=== PATIENT | female | born 1930 ===

== ENCOUNTER 2018-04-13 09:46 | Emergency (ER) | payer MEDICARE, OTHER ==
--- NOTE | 2018-04-13 10:01 | UC ---
Skin Complaint HPI - HPI Summary HPI Summary: 88 yo female presents with cat bite to right hand. She tells me that 2 days ago she was playing with her daughter's cat and the cat got spooked and bit pt on right hand. Cat is UTD on vaccinations. pt has a friend who is an [employer] and they called in augmentin - she took a dose last night and one this morning. Here today for evaluation. Pt and daughter also tell me that 4-5 days ago pt and her ate out at local restaurant - the next day had vomiting and diarrhea. Later that night pt seemed to be wheezing. Has been coughing a little since the vomiting episode. Denies fever, chills, SOB, chest pain, abdominal pain, n/v/d/c. - History of Current Complaint Time Seen by Provider: 04/13/18 10:01 Stated Complaint: CAT BITE Hx Obtained From: Patient, Family/Tobacco Sprayer Onset/Duration: Sudden Onset Onset Severity: Moderate Current Severity: Mild Pain Intensity: 3 Pain Scale Used: 0-10 Numeric - Allergy/Home Medications Allergies/Adverse Reactions: Allergies Allergy/AdvReac Type Severity Reaction Status Date / Time No Known Allergies Allergy Verified 05/30/14 10:12 Home Medications: Home Medications Amoxicillin/Clavulanate TAB* [Augmentin TAB 875*] 875 mg PO BID 04/13/18 [ History Confirmed 04/13/18] Aspirin 1 tab PO DAILY 04/13/18 [History Confirmed 04/13/18] Lisinopril TAB* [Prinivil TAB*] 10 mg PO DAILY 04/13/18 [History Confirmed 04/13] Losartan TAB* [Cozaar TAB*] 50 mg PO DAILY 04/13/18 [History Confirmed 04/13/18] Review of Systems Constitutional: Negative Skin: Other - Cat bite right hand Eyes: Negative ENT: Negative Respiratory: Cough Cardiovascular: Negative Gastrointestinal: Negative Neurovascular: Negative Neurological: Negative Psychological: Negative All Other Systems Reviewed And Are Negative: Yes PMH/Surg Hx/FS Hx/Imm Hx Previously Healthy: Yes Cardiovascular History: Hypertension - Surgical History Surgical History: Yes Surgery Procedure, Year, and Place: TUBAL LIGATION,LUMPECTOMY,LIPOMA REMOVED FROM LT SHOULDER, LEFT BREAST LUMPECTOMY FEBRUARY 2012, TONSILS - Social History Alcohol Use: Daily Alcohol Amount: wine/dinner Substance Use Type: None Smoking Status (MU): Never Smoked Tobacco Physical Exam - Summary Physical Exam Summary: GENERAL: NAD. WDWN. No pain distress. SKIN: Right dorsal hand: 2mm scab at area of cat bite. Mild edema about right hand. Mild TTP. No warmth, erythema, drainage, bleeding, or streaking HEENT: Head: AT/NC Eyes: EOM intact. Conjunctiva clear without inflammation or discharge. Ears: Hearing grossly normal. TMs intact, no bulging, erythema, or edema. Nose: Nasal mucosa pink and moist. NTTP maxillary and frontal sinus. Throat: Posterior oropharynx without exudates, erythema, or tonsillar enlargement. Uvula midline. NECK: Supple. Nontender. No lymphadenopathy. CHEST: CTAB. No r/r/w. No accessory muscle use. Breathing comfortably and in no distress. CV: RRR. Without m/r/g. Pulses intact. Brisk cap refill. MSK: FROM right hand and wrist with mild pain. NEURO: Alert. CN II-XII grossly intact. PSYCH: Age appropriate behavior. Triage Information Reviewed: Yes Course/Dx - Course Course Of Treatment: CXR: IMPRESSION: NO ACTIVE CARDIOPULMONARY DISEASE. She had one dose of augmentin last night and one this morning. I advised pt and her daughter to continue taking the augmentin - if by tomorrow or her symptoms have not improved to begin Clindamycin and schedule a f/u with her PCP or return to urgent care. Made aware to stop antibiotics if develop diarrhea or abdominal pain - Diagnoses Provider Diagnoses: Cat bite right hand. Cough Discharge - Sign-Out/Discharge Documenting (check all that apply): Discharge/Admit/Transfer - Discharge Plan Condition: Stable Disposition: HOME Prescriptions: Clindamycin HCl 150 mg PO TID #15 capsule Patient Education Materials: Animal Bite (ED) Referrals: No Primary Care Phys,NOPCP [Primary Care Provider] - Additional Instructions: If you develop a fever, shortness of breath, chest pain, new or worsening symptoms - please call your PCP or go to the ED. 1) Continue taking your AUGMENTIN as prescribed 2) If by your hand has not improved - please start the new antibiotic ( CLINDAMYCIN) in addition to the augmentin 3) If, at any point, you develop diarrhea or abdominal pain - please stop taking the antibiotic and call us 4) May continue to apply ice and take tylenol or ibuprofen for your hand - Billing Disposition and Condition Condition: STABLE Disposition: HOME
[2018-04-13 10:49] VITALS: BP 162/63
--- NOTE | 2018-04-13 11:07 | RAD ---
HISTORY: Vomiting, wheezing, question aspiration COMPARISONS: December 01, 2012 VIEWS: 4: Frontal dual-energy and lateral views of the chest. FINDINGS: CARDIOMEDIASTINAL SILHOUETTE: The cardiac silhouette is mildly enlarged. The cardiomediastinal silhouette is stable from previous examinations.. CHLOE: The chloe are normal. PLEURA: The costophrenic angles are sharp. No pleural abnormalities are noted. LUNG PARENCHYMA: The lungs are clear. ABDOMEN: The upper abdomen is clear. There is no subphrenic gas. BONES AND SOFT TISSUES: No bone or soft tissue abnormalities are noted. OTHER: None. IMPRESSION: NO ACTIVE CARDIOPULMONARY DISEASE.
== END 2018-04-13 11:25 | disposition home or self-care (01) ==
LOC: UCEAST 09:46
DX: S61.431A Puncture wound without foreign body of right hand, initial encounter (principal); W55.01XA Bitten by cat, initial encounter; Y93.9 Activity, unspecified; Y92.9 Unspecified place or not applicable; R05 Cough; R11.10 Vomiting, unspecified; R19.7 Diarrhea, unspecified; I10 Essential (primary) hypertension; Z79.82 Long term (current) use of aspirin
CPT/HCPCS: 71046; 99202; G0463